=== PATIENT | female | born 1950 | race Caucasian/White ===

== ENCOUNTER → 2020-06-25 | Outpatient (CLI) | payer MEDICARE | LOC: KOH-I 15:12 | DX: R59.0 Localized enlarged lymph nodes (principal); R19.09 Other intra-abdominal and pelvic swelling, mass and lump | CPT/HCPCS: 76881 ==

== ENCOUNTER 2021-10-25 13:23 | Emergency (ER) | payer MEDICARE | END 2021-10-25 15:13 | disposition home or self-care (01) | LOC: ER1 13:23 | DX: S93.401A Sprain of unspecified ligament of right ankle, initial encounter (principal); X50.9XXA Other and unspecified overexertion or strenuous movements or postures, initial encounter | CPT/HCPCS: 73610; 99283 ==